=== PATIENT | female | born 1995 | race Caucasian/White ===

== ENCOUNTER 2019-04-26 07:37 | Outpatient (CLI) | payer BC ==
[2019-04-26] MEDS ORDERED: Iopamidol 300 61% 50 ML VIAL FS ONE (07:55)
[2019-04-26] MEDS ORDERED: Gadobenate Dimeglumine 529 MG/1 ML (20ML VIAL) ONE (07:55)
[2019-04-26] MEDS ORDERED: EPINEPHrine 1 MG/ML AMP ONE (07:55)
[2019-04-26] MEDS ORDERED: Lidocaine 1% PF 10 ML AMP ONE (07:55)
--- NOTE | 2019-04-26 11:24 | MRI ---
Exam: Elbow MRI with post arthrogram contrast: FINDINGS: Multiplanar, multisequence MRI examination of the left elbow is performed. Contrast media is identified within the elbow joint. There is considerable motion artifact which resu lts in image degradation. There is an approximately 0.9 x 1.8 cm diameter area of probable heterotopic ossification adjacent to the tip of the olecranon and somewhat extending into the olecran on fossa. This does not show any evidence for significant T2 hyperintensity or acute marrow edema. There are some heterogeneous intraosseous cystic changes. This does not appear to be within the joint or represent an intra-articular body. There is some heterogeneous contrast media extending into the undersurface of the triceps tendon which partially overlies this area of abnormal ossification. T his could be consistent with a partial-thickness undersurface triceps tendon tear. Ulnar collateral ligament appears intact. No evidence for significant abnormal marrow signal. Lateral collateral ligam ent complex appears intact. Common flexor and common extensor tendon insertion ranges are unremarkable. Biceps and triceps tendons appear unremarkable. IMPRESSION: Limited examination because of severe motion artifact. Large irregular area of heterotopic ossificati on adjacent to the tip of the olecranon, but this does not appear to be an intra-articular body. This does not appear to be fused to the olecranon or the distal humerus. Contrast fluid density exten ding into the undersurface and interstitial aspect of the distal triceps tendon which may well represent undersurface and minimal interstitial tearing.
--- NOTE | 2019-04-26 12:06 | RAD ---
PROCEDURE: Left elbow arthrogram. INDICATION: Left elbow pain and injury. FINDINGS: A contrast solution that was mixed by pharmacy containing iodinated contrast and Gadolinium was injec wyatt into the left elbow joint under fluoroscopic observation. Subsequent films show normal distributi on within the elbow joint. See post Gadolinium arthrogram left elbow for further characterization. PROCEDURE NOTE: Skin over the lateral left elbow was prepped and draped in the sterile manner. Local anesthesia was a dministered with lidocaine. A 25 gauge needle was introduced into the elbow joint laterally at the hu meral radial joint. Contrast was injected under fluoroscopic observation. Subsequent film showed normal distribution of contrast within the elbow joint. The patient tolerated the procedure well and there were no problems or complications. POS: OFF
== END 2019-04-26 07:38 | disposition home or self-care (01) ==
LOC: RAD 07:37
PROVIDERS: ATTEND Emergency Medicine Sports Medicine
DX: M25.522 Pain in left elbow (principal); M24.022 Loose body in left elbow; M25.552 Pain in left hip
CPT/HCPCS: 24220; A9577; J0171; J2001; Q9967